=== PATIENT | female | born 1975 | race Caucasian/White ===

== ENCOUNTER 2017-12-05 12:33 | Day surgery (SDC) | payer BC ==
[~2017-12-05 12:33] MED LIST: Buffered Lidocaine 0.9% SYRIN* 5 ML/SYR SYRINGE INTRADERM ONE
[2017-12-05] MEDS ORDERED: Clindamycin 900 MG IVPREMIX(* 900 MG/50 ML SDV IV ONE (12:55)
[2017-12-05] MEDS ORDERED: fentaNYL* 50 MCG/ML 2 ML VIAL (100 MCG VIAL) ONE (14:35)
[2017-12-05] MEDS ORDERED: Propofol* 10 MG/ML 20 ML BTL IV PUSH ONE (14:36)
[2017-12-05] MEDS ORDERED: Lidocaine 2% PF * 5 ML VIAL ONE (14:36)
[2017-12-05] MEDS ORDERED: Bupivacaine 0.5% SDV PF* 30ML VIAL ONE (14:38)
[2017-12-05 15:42] VITALS: BP 114/66
== END 2017-12-05 15:43 | disposition home or self-care (01) ==
LOC: OREAST 12:33
PROVIDERS: ATTEND Plastic Surgery
DX: M67.442 Ganglion, left hand (principal); F32.9 Major depressive disorder, single episode, unspecified
CPT/HCPCS: 88304; J2704; J3010